=== PATIENT | male | born 2000 | race Two or more races ===

== ENCOUNTER 2021-06-04 21:22 | Emergency (ER) | payer SELFPAY ==
[~2021-06-04] VITALS: Ht 172.7 cm; Wt 56.7 kg
[2021-06-04 22:13] VITALS: BP 147/102
[2021-06-04] MEDS ORDERED: PROPOFOL 10 MG/ML 20 ML IV ONE (22:15)
[2021-06-04] MEDS ORDERED: PROPOFOL 100 ML IV ONE (22:29)
== END 2021-06-05 01:12 | disposition home or self-care (01) ==
LOC: ER 21:22
DX: S43.084A Other dislocation of right shoulder joint, initial encounter (principal); W23.0XXA Caught, crushed, jammed, or pinched between moving objects, initial encounter; Y93.89 Activity, other specified; Y92.89 Other specified places as the place of occurrence of the external cause; Y99.8 Other external cause status
CPT/HCPCS: 23650; 73030; 99152; 99153; 99285; J2704; J7030